=== PATIENT | male | born 1975 | race Caucasian/White ===

== ENCOUNTER 2023-03-31 06:30 | Day surgery (SDC) | payer BC ==
[~2023-03-31 06:30] MED LIST: Lactated Ringers 1,000 ML IV SCH; Midazolam 1 MG/ML 2 ML SDV ONE; Propofol 200 MG/20 ML SDV ONE; Sodium Chloride 0.9% 10 ML Syringe FLUSH PRN; Sodium Chloride 0.9% 10 ML Syringe FLUSH SCH; ceFAZolin 2 GM Vial ONE; fentaNYL 100 MCG/2 ML SDV ONE
[2023-03-31] MEDS ORDERED: ceFAZolin 2 GM Vial ONE (06:31)
[2023-03-31] MEDS ORDERED: Ketorolac 30 MG/ML SDV ONE (06:31)
[2023-03-31] MEDS ORDERED: Lidocaine 1% 4 ML ONE (06:31)
[2023-03-31] MEDS ORDERED: Ondansetron 4 MG/2 ML SDV ONE (06:31)
[2023-03-31] MEDS ORDERED: Bupivacaine 0.25% 10 ML SDV ONE (06:38)
[2023-03-31] MEDS ORDERED: Citric Acid/Sodium Citrate Solution 30 ML Cup PO ONE (07:04)
[2023-03-31] MEDS ORDERED: HYDROmorphone 0.5 MG/0.5 ML Syringe IVPUSH PRN (08:04)
[2023-03-31] MEDS ORDERED: Ondansetron 4 MG/2 ML SDV IVPUSH PRN (08:04)
[2023-03-31] MEDS ORDERED: fentaNYL 100 MCG/2 ML SDV IVPUSH PRN (08:04)
== END 2023-03-31 09:34 | disposition home or self-care (01) ==
LOC: JD.SDS 06:30
PROVIDERS: ATTEND Orthopaedic Surgery
DX: S83.241A Other tear of medial meniscus, current injury, right knee, initial encounter (principal); K21.9 Gastro-esophageal reflux disease without esophagitis; Z79.899 Other long term (current) drug therapy; F17.210 Nicotine dependence, cigarettes, uncomplicated; X58.XXXA Exposure to other specified factors, initial encounter
CPT/HCPCS: 29881; A9270; J0690; J1885; J2250; J2405; J2704; J3010; J3490; J7120; 01400; 01402